=== PATIENT | female | born 1940 | race Hispanic/Latino ===

== ENCOUNTER 2018-02-19 12:35 | Outpatient (CLI) | payer MEDICARE | END 2018-02-19 12:36 | disposition home or self-care (01) | LOC: BICULT 12:35 | PROVIDERS: ATTEND Internal Medicine Gastroenterology | DX: K74.60 Unspecified cirrhosis of liver (principal); K80.20 Calculus of gallbladder without cholecystitis without obstruction; R16.1 Splenomegaly, not elsewhere classified | CPT/HCPCS: 76705 ==

== ENCOUNTER 2018-07-02 09:25 | Outpatient (CLI) | payer MEDICARE ==
--- NOTE | 2018-07-02 13:28 | RAD ---
LEFT HIP TWO VIEWS: History: Left hip pain. FINDINGS: No evidence of fracture or acute osseous abnormality. Mild degenerative change at the hip. Femoral he ad contour is preserved. IMPRESSION: No acute findings. POS: [facility]
== END 2018-07-02 09:26 | disposition home or self-care (01) ==
LOC: BICMAMMO 09:25
PROVIDERS: ATTEND Family Medicine
DX: Z12.31 Encounter for screening mammogram for malignant neoplasm of breast (principal); M25.552 Pain in left hip
CPT/HCPCS: 77063; 77067

== ENCOUNTER 2018-10-10 16:14 | Outpatient (CLI) | payer MEDICARE ==
--- NOTE | 2018-10-10 17:03 | RAD ---
CHEST 2 VIEWS: Date: 10/10/18 HISTORY: Shortness of breath. COMPARISON: Radiograph from 2015. FINDINGS: Heart size is enlarged. Mild pulmonary venous congestion. No pneumothorax. No large effusion. No osse ous abnormality. IMPRESSION: Cardiomegaly and mild pulmonary venous congestion. POS: [facility]
== END 2018-10-10 16:15 | disposition home or self-care (01) ==
LOC: BICRAD 16:14
PROVIDERS: ATTEND Family Medicine
DX: R06.02 Shortness of breath (principal); I51.7 Cardiomegaly; R09.89 Other specified symptoms and signs involving the circulatory and respiratory systems
CPT/HCPCS: 71046

== ENCOUNTER 2019-05-14 08:05 | Outpatient (CLI) | payer MEDICARE ==
--- NOTE | 2019-05-14 10:39 | ULT ---
HEPATIC ULTRASOUND WITH EWING SCALE AND COLOR FLOW AND SPECTRAL DOPPLER IMAGING: HISTORY: Cirrhosis of the liver. FINDINGS: Comparison is made to the exam of 08/14/2018. Gallstones are again seen without gallbladder wall thickening or pericholecystic fluid. The common d uct measures 2 mm in diameter. The spleen is enlarged measuring 15.5 cm in length. The liver has a coarse echotexture. A tiny 6 x 4 x 2 mm hyperechoic lesion is seen in the right lobe which is not definitely identified on the previous study. No other liver mass was seen. No intrahe patic biliary ductal dilatation was noted. No free fluid is seen. There is normal flow and spectral waveforms in the hepatic, portal, and splen ic vasculature. FINDINGS: 1. Cholelithiasis. 2. Splenomegaly. 3. A 6 x 4 x 2 mm hyperechoic lesion in the right lobe of the liver. This may represent a hemangiom a. Further evaluation with a CT scan using the hemangioma protocol is recommended. CODE T POS: [facility]
== END 2019-05-14 08:06 | disposition home or self-care (01) ==
LOC: BICULT 08:05
PROVIDERS: ATTEND Internal Medicine
DX: K74.60 Unspecified cirrhosis of liver (principal); B18.2 Chronic viral hepatitis C; K80.20 Calculus of gallbladder without cholecystitis without obstruction; R16.1 Splenomegaly, not elsewhere classified; K76.9 Liver disease, unspecified
CPT/HCPCS: 76705

== ENCOUNTER 2019-06-03 11:11 | Inpatient (IN) | payer MEDICARE ==
--- NOTE | 2019-06-03 11:44 | RAD ---
Exam: Chest 2 views HISTORY:Fever and cough Comparison: 10/10/2018 FINDINGS: Lungs: Multifocal alveolar consolidation is present, bilaterally. Cardiac silhouette:Borderline enlargement. Ectasia of thoracic aorta. Pulmonary vessels: Mild central vascular prominence. Pleural Spaces: Clear Pneumothorax: None Osseous abnormalities: None of acuity. IMPRESSION: Bilateral, multifocal alveolar consolidation which could either relate to atypical pneumo ananda, or edema. Correlate clinically. Imaging follow-up may be obtained for continued assessment.
[2019-06-03 12:13] LABS: ALT (SGPT) 15 U/L (8-55); AST (SGOT) 19 U/L (5-34); Alkaline Phosphatase 93 U/L (40-110); Anion Gap 12 mmol/L (10-20); BUN (Urea Nitrogen) 14 mg/dL (9.8-20.1); Bilirubin, Total 1.9 mg/dL (0.2-1.2); Calc. Creatinine Clearance 0 mL/min (70-130); Calcium 9.2 mg/dL (7.8-10.44); Carbon Dioxide 26 mmol/L (23-31); Chloride 102 mmol/L (98-107); Estimated GFR-MDRD 68; Globulin 3.7 g/dL (2.4-3.5); Glucose 185 mg/dL (83-110); Potassium 3.8 mmol/L (3.5-5.1); Protein, Total 7.7 g/dL (6.0-8.3); Sodium 136 mmol/L (136-145)
[2019-06-03 12:18] LABS: #Lymphocytes 0.4 thou/uL (1.20-3.40); #Monocytes 0.4 thou/uL (0.11-0.59); #Neutrophils 6.4 thou/uL (1.40-6.50); %Basophils 0.2 % (0.0-1.0); %Eosinophils 0.3 % (0.0-10.0); %Lymphocytes 5.4 % (21.0-51.0); %Monocytes 5.1 % (0.0-10.0); %Neutrophils 89.1 % (42.0-75.0); Hemoglobin 11.9 g/dL (12.0-16.0); MDiff Complete? YES; Mean Corpuscular HGB CONC 31.9 g/dL (32.0-36.0); Mean Corpuscular Hemoglobin 25.8 pg (27.0-31.0); Mean Corpuscular Volume 80.7 fL (78.0-98.0); Mean Platelet Volume 9.7 fL (7.4-10.4); Platelet Count 71 thou/uL (130-400); Platelet Morphology Comment Appears Decreased; Polychromasia SLIGHT = 2-3 cells (100X) (0-2/hpf); RBC Distribution Width 15.7 % (11.5-14.5); Red Blood Cell (RBC) Count 4.61 mill/uL (4.20-5.40); White Blood Cell (WBC) Count 7.2 thou/uL (4.8-10.8)
[2019-06-03 12:21] LABS: Bacteria/HPF 3+ HPF (None Seen); Bilirubin Negative (Negative); Blood, Urine Trace (Negative); Clarity Turbid (Clear); Glucose, Urine (Dipstick) Normal (Negative); Leukocyte 500 Leu/uL (Negative); Nitrite 2+ (Negative); Protein, Urine (Dipstick) 50 mg/dL (Neg-Trace); Urobilinogen 3 mg/dL (Less than 2)
[2019-06-03] MEDS ORDERED: cefTRIAXone\\ROCEPHIN 1 GM VIAL ONE (13:00)
[2019-06-03] MEDS ORDERED: Acetaminophen 500 MG TAB ONE (13:00)
[2019-06-03] MEDS ORDERED: Azithromycin 500 MG VIAL ONE (16:10)
[2019-06-03] MEDS ORDERED: Ondansetron PF 4 MG/2 ML Vial IVP PRN (18:05)
[2019-06-03] MEDS ORDERED: Ondansetron ODT 4 MG TAB PO PRN (18:05)
[2019-06-03] MEDS ORDERED: Acetaminophen 650 MG Suppository PR PRN (18:05)
[2019-06-03] MEDS ORDERED: Dextrose 50% Abboject 50 ML SYRINGE SLOW IVP PRN (18:06)
[2019-06-03] MEDS ORDERED: Dextrose 5% in Water 1,000 ML IV PRN (18:06)
[2019-06-03] MEDS ORDERED: HumaLOG 300 UNITS/3 ML VIAL SC PRN (18:06)
--- NOTE | 2019-06-03 18:54 | PDOC.HHP ---
Hospitalist HPI - History of Present Illness shortness of breath and cough History of Present Illness: Patient states she has been having shortness of breath since the weekend and a dry cough. She states she has been around family members who have had a cold. She complains of dysuria for the last 2 months. States she saw her primary care physician for a routine visit and was told labs as well as UA was normal. This morning she spiked a temperature at home to 101.9. At present she feels significantly better than when she first came in to the ER. She reports feeling generally fatigued. ED Course: Labs done in the ED included WCC of 7.2, Neutrophils of 89.1, Na+ 136, K+ 3.8, BUN 14, Creat 0.82, GFR 68. Total bilirubin 1.9, protein 7.7, Albumin 4, Alk phos 93, AST 19, ALT 15, Lactic acid 2.3. A chest xray was done showing bilateral multifocal alveolar consolidation felt to represent atypical pneumonia vs. edema. A UA was done as well showing a turbid appearance, leukocyte 500, Nitrite 2+, Trace blood, Bacterial 3+, WBC 11-20. Hospitalist ROS - Review of Systems Constitutional: reports: fever, malaise Eyes: denies: pain, vision change, conjunctivae inflammation, eyelid inflammation, redness, other ENT: denies: ear pain, ear discharge, nose pain, nose discharge, nose congestion , mouth pain, mouth swelling, throat pain, throat swelling, other Respiratory: reports: cough, dry, shortness of breath. denies: hemoptysis, SOB with excertion, pleuritic pain, sputum, wheezing, other Cardiovascular: denies: chest pain, palpitations, orthopnea, paroxysmal noc. dyspnea, edema, light headedness, other Gastrointestinal: denies: nausea, vomiting, abdominal pain, diarrhea, constipation, melena, hematochezia Genitourinary: reports: dysuria. denies: frequency, incontinence, hematuria, retention, other Musculoskeletal: reports: back pain (generally sore due to coughing). denies: neck pain, shoulder pain, arm pain, hand pain, leg pain, foot pain, other Skin: denies: rash, lesions, brigido, bruising, other Neurological: denies: weakness, numbness, incoordination, change in speech, confusion, seizures, other Hospitalist History - Past Medical History Cardiac: reports: Hyperlipidemia Gastrointestinal: reports: Other Hepatobiliary: reports: Cirrhosis, Hep A/B/C (hepatitis C) Psych: reports: Anxiety Endocrine: reports: Diabetes, Hypothyroidism - Past Surgical History Past Surgical History: reports: Appendectomy, Hysterectomy - Social History Smoking Status: Never smoker Alcohol: reports: None Drugs: reports: none Living Situation: With Family Activity level: independent ambulation - Exam General Appearance: NAD Eye: PERRL, anicteric sclera ENT: normocephalic atraumatic, no oropharyngeal lesions, moist mucosa Neck: supple, symmetric, no lymphadenopathy Heart: RRR, no murmur, no gallops, no rubs Respiratory: CTAB, no wheezes, no rales, no ronchi, normal chest expansion Gastrointestinal: soft, non-tender, non-distended, normal bowel sounds Extremities: no cyanosis, no clubbing, no edema Skin: normal turgor, no lesions, no rashes Neurological: cranial nerve grossly intact, no focal deficits Musculoskeletal: normal tone, normal strength, no muscle wasting Psychiatric: normal affect, normal behavior, A&O x 3 Hospitalist Results - Labs Result Diagrams: 06/03/19 11:19 06/03/19 11:19 Lab results: WBC 7.2 thou/uL (4.8-10.8) 06/03/19 11:19 Hgb 11.9 g/dL (12.0-16.0) L 06/03/19 11:19 Hct 37.2 % (36.0-47.0) 06/03/19 11:19 MCV 80.7 fL (78.0-98.0) 06/03/19 11:19 Plt Count 71 thou/uL (130-400) L 06/03/19 11:19 Neutrophils % 89.1 % (42.0-75.0) H 06/03/19 11:19 Sodium 136 mmol/L (136-145) 06/03/19 11:19 Potassium 3.8 mmol/L (3.5-5.1) 06/03/19 11:19 Chloride 102 mmol/L (98-107) 06/03/19 11:19 Carbon Dioxide 26 mmol/L (23-31) 06/03/19 11:19 BUN 14 mg/dL (9.8-20.1) 06/03/19 11:19 Creatinine 0.82 mg/dL (0.6-1.1) 06/03/19 11:19 Glucose 185 mg/dL (83-110) H 06/03/19 11:19 Lactic Acid 1.0 mmol/L (0.5-2.2) 06/03/19 15:21 Calcium 9.2 mg/dL (7.8-10.44) 06/03/19 11:19 Total Bilirubin 1.9 mg/dL (0.2-1.2) H 06/03/19 11:19 AST 19 U/L (5-34) 06/03/19 11:19 ALT 15 U/L (8-55) 06/03/19 11:19 Alkaline Phosphatase 93 U/L (40-110) 06/03/19 11:19 Serum Total Protein 7.7 g/dL (6.0-8.3) 06/03/19 11: Albumin 4.0 g/dL (3.4-4.8) 06/03/19 11:19 Urine Ketones 20 mg/dL (Negative) A 06/03/19 12:00 Urine Blood Trace (Negative) A 06/03/19 12:00 Urine Nitrite 2+ (Negative) A 06/03/19 12:00 Ur Leukocyte Esterase 500 Olivia/uL (Negative) A 06/03/19 12:00 Urine RBC 4-6 HPF (0-3) A 06/03/19 12:00 Urine WBC 11-20 HPF (0-3) A 06/03/19 12:00 Ur Squamous Epith Cells 4-6 HPF (0-3) A 06/03/19 12:00 Urine Bacteria 3+ HPF (None Seen) A 06/03/19 12:00 - Radiology Interpretation Chest x-ray Status: report reviewed by il Hospitalist H&P A/P - Problem (1) UTI (urinary tract infection) Status: Acute (2) Shortness of breath Code(s): R06.02 - SHORTNESS OF BREATH Status: Acute (3) Multifocal lung consolidation Code(s): J18.1 - LOBAR PNEUMONIA, UNSPECIFIED ORGANISM Status: Acute (4) Diabetes mellitus Code(s): E11.9 - TYPE 2 DIABETES MELLITUS WITHOUT COMPLICATIONS Status: Chronic (5) Hypothyroidism Code(s): E03.9 - HYPOTHYROIDISM, UNSPECIFIED Status: Chronic (6) Hyperlipidemia Code(s): E78.5 - HYPERLIPIDEMIA, UNSPECIFIED Status: Chronic - Plan Plan: Continue IV Abx. Urine culture pending. CXR: multifocal aveolar consolidation, possible pneumonia vs. edema. Will check BNP. Albuterol Nebs. Monitor O2 sats. Gentle hydration. Reconcile home medications once verified. Monitor glucose and initiate insulin sliding scale CODE STATUS: FULL SURROGATE DECISION MAKER: Her daughter Mahi Pickett. Case discussed with Dr. Arana who agrees with plan as above.
[2019-06-03] MEDS: Albuterol Sulfate 2.5 mg/3 ml Neb NEB SCH ×2 (21:26→23:06)
[2019-06-03] MEDS: Famotidine/PF 20 mg/2ml Vial SLOW IVP SCH (21:45)
[2019-06-03 22:23] VITALS: BMI 35.2
[2019-06-04] MEDS: Acetaminophen 325 MG TAB PO PRN ×3 (00:18→20:24)
[2019-06-04 06:40] LABS: #Lymphocytes 0.6 thou/uL (1.20-3.40); #Monocytes 0.3 thou/uL (0.11-0.59); #Neutrophils 3.5 thou/uL (1.40-6.50); %Basophils 0.6 % (0.0-1.0); %Eosinophils 0.5 % (0.0-10.0); %Lymphocytes 13.8 % (21.0-51.0); %Monocytes 6.9 % (0.0-10.0); %Neutrophils 78.3 % (42.0-75.0); Hemoglobin 9.9 g/dL (12.0-16.0); Mean Corpuscular HGB CONC 32.7 g/dL (32.0-36.0); Mean Corpuscular Hemoglobin 26.1 pg (27.0-31.0); Mean Corpuscular Volume 79.8 fL (78.0-98.0); Platelet Count 63 thou/uL (130-400); RBC Distribution Width 15.5 % (11.5-14.5); Red Blood Cell (RBC) Count 3.78 mill/uL (4.20-5.40); White Blood Cell (WBC) Count 4.5 thou/uL (4.8-10.8)
[2019-06-04 06:41] LABS: Anion Gap 11 mmol/L (10-20); BUN (Urea Nitrogen) 11 mg/dL (9.8-20.1); Calc. Creatinine Clearance 89 mL/min (70-130); Calcium 8.4 mg/dL (7.8-10.44); Carbon Dioxide 25 mmol/L (23-31); Chloride 108 mmol/L (98-107); Estimated GFR-MDRD 84; Glucose 126 mg/dL (83-110); Potassium 3.6 mmol/L (3.5-5.1); Sodium 140 mmol/L (136-145)
[2019-06-04] MEDS: Albuterol Sulfate 2.5 mg/3 ml Neb NEB SCH ×4 (07:04→23:08)
[2019-06-04] MEDS ORDERED: Prevnar 13-Val Conj/PF 0.5 ML SYRINGE IM ONE (09:00)
[2019-06-04] MEDS ORDERED: FLU VACC TS2019-20(65YR UP)/PF 180 MCG/0.5 ML SYRINGE IM ONE (09:00)
[2019-06-04] MEDS: Famotidine/PF 20 mg/2ml Vial SLOW IVP SCH ×2 (11:47→20:25)
[2019-06-04] MEDS: Benzonatate 100 MG CAP PO PRN (12:04)
[2019-06-04] MEDS: cefTRIAXone\\ROCEPHIN 1 GM in Sodium Chloride 0.9% 100 ML IVPB SCH (12:05)
[2019-06-04] MEDS: HumaLOG 300 UNITS/3 ML VIAL SC PRN (12:19)
[2019-06-04] MEDS: Azithromycin 500 MG in Sodium Chloride 0.9% 250 ML 250 ML IVPB SCH (17:54)
[2019-06-04] MEDS ORDERED: Senokot 8.6 MG TAB PO PRN (18:51)
[2019-06-04] MEDS ORDERED: Polyethylene Glycol 3350 17 GM Packet PO PRN (18:52)
[2019-06-04] MEDS ORDERED: Bisacodyl 10 MG SUPP PR PRN (18:52)
--- NOTE | 2019-06-04 18:54 | PDOC.HOSPP ---
- Subjective Encounter Date: 06/04/19 Encounter Time: 18:52 Subjective: Patient feels much better compared to yesterday. She still feels congested, unable to produce much phlegm up. Feels some pressure. Also has some abdominal pain. Hasn't had a bowel movement since last Sunday. She has history of multiple UTI in past - Objective Vital Signs & Weight: Vital Signs (12 hours) Temp Pulse Resp BP Pulse Ox 06/04/19 16:00 98.5 F 91 20 100/63 95 06/04/19 14:23 85 16 96 06/04/19 11:00 97.6 F 85 20 107/59 L 96 06/04/19 08:00 96 06/04/19 07:47 98.0 F 88 20 112/67 96 06/04/19 07:04 80 20 97 Weight Weight 180 lb I&O: 06/03/19 06/04/19 06/05/19 06:59 06:59 06:59 Intake Total 400 Balance 400 Result Diagrams: 06/04/19 05:27 06/04/19 05:27 Additional Labs: Accuchecks 06/04/19 06/04/19 06/04/19 16:19 11:12 04:34 POC Glucose 133 H 207 H 154 H 06/03/19 22:33 POC Glucose 144 H Hospitalist ROS - Review of Systems Constitutional: denies: fever, chills - Medication Medications: Active Medications Generic Name Dose Route Start Last Admin Trade Name Freq PRN Reason Stop Dose Admin Acetaminophen 650 mg 06/03/19 18:05 06/04/19 12:04 Tylenol PO 650 mg Q4H PRN Administration Headache/Fever/Mild Pain (1-3) Albuterol Sulfate 2.5 mg 06/03/19 19:00 06/04/19 14:23 Ventolin NEB 2.5 mg [id number] CONCHITA Administration Benzonatate 100 mg 06/03/19 18:07 06/04/19 12:04 Tessalon PO 100 mg TIDPRN PRN Administration Cough Famotidine 20 mg 06/03/19 21:00 06/04/19 11:47 Pepcid SLOW IVP 20 mg Q12HR CONCHITA Administration Ceftriaxone Sodium 1 gm/ 100 mls @ 200 mls/hr 06/04/19 13:00 06/04/19 12:05 Sodium Chloride IVPB 100 mls 1300 CONCHITA Administration Azithromycin 500 mg/ Sodium 250 mls @ 250 mls/hr 06/04/19 16:00 06/04/19 17: 54 Chloride IVPB 250 mls 1600 CONCHITA Administration Insulin Human Lispro 0 units 06/03/19 18:06 06/04/19 12:19 Humalog SC 3 unit .MILD SLIDING SCALE PRN Administration Mild Correctional Scale - Exam General Appearance: NAD, awake alert Eye: PERRL, anicteric sclera ENT: normocephalic atraumatic, no oropharyngeal lesions Neck: supple, symmetric, no JVD, no thyromegaly Heart: RRR, no murmur, no gallops, no rubs Respiratory - other findings: diminished breath sounds, scattered wheezing Gastrointestinal: soft, non-tender, non-distended, normal bowel sounds Extremities: no cyanosis, no clubbing, no edema Skin: normal turgor, no lesions, no rashes Neurological: cranial nerve grossly intact, normal sensation to touch, no focal deficits, no new deficit Musculoskeletal: normal tone, normal strength, no muscle wasting Psychiatric: normal affect, normal behavior, A&O x 3 Hosp A/P - Plan This is a 79 year old female with history of diabetes, hyperlipidemia who presented with fever at urgent care, cough, shortness of breath, found to have mildly hypoxic. Found to have pneumonia and UTI Sepsis from pneumonia vs UTI Possible COPD exacerbation? - temp of 100.1, HR 93, chest X ray showing multifocal alveolar consolidation present. Blood cultures negative, flu negative, send sputum culture - continue IV ceftriaxone and azithromycin - UA appeared turbid, send urine culture -no history of COPD however lungs sound very tight and wheezing present, will add IV solumedrol 40 mg, duonebs, albuterol prn Anemia - Hb drop from 11 to 9, check iron panel Hyperlipidemia- atorvastatin Hypothyroidism - continue levothyroxine Type II diabetes- continue sliding scale Thrombocytopenia - platelet drop from 71 to 63, will monitor DVT prophylaxis: SCD due to thrombocytopenia Code status: full code
[2019-06-04] MEDS ORDERED: Albuterol Sulfate 1.25 MG/3 ML NEB NEB PRN (18:56)
[2019-06-04] MEDS ORDERED: methylPREDNISolone Sod Succ 40 MG VIAL IVP SCH (19:00)
[2019-06-04] MEDS ORDERED: guaiFENesin ER 600 MG TAB PO SCH (19:00)
[2019-06-04] MEDS ORDERED: Bacteriostatic Water 30 ML VIAL FS PRN (19:02)
[2019-06-04 20:10] LABS: Iron 24 ug/dL (50-170); Iron Binding Capacity, Total 350 mcg/dL (265-497)
[2019-06-04] MEDS: Docusate 100 MG CAP PO SCH (20:24)
[2019-06-05] MEDS: HumaLOG 300 UNITS/3 ML VIAL SC PRN ×2 (05:41→16:52)
[2019-06-05 05:52] LABS: Hemoglobin 11.2 g/dL (12.0-16.0); Mean Corpuscular HGB CONC 32.2 g/dL (32.0-36.0); Mean Corpuscular Hemoglobin 25.9 pg (27.0-31.0); Mean Corpuscular Volume 80.7 fL (78.0-98.0); Platelet Count 71 thou/uL (130-400); RBC Distribution Width 15.5 % (11.5-14.5); White Blood Cell (WBC) Count 2.1 thou/uL (4.8-10.8)
[2019-06-05 06:01] LABS: Anion Gap 16 mmol/L (10-20); BUN (Urea Nitrogen) 15 mg/dL (9.8-20.1); Calc. Creatinine Clearance 74 mL/min (70-130); Calcium 9.4 mg/dL (7.8-10.44); Carbon Dioxide 21 mmol/L (23-31); Chloride 108 mmol/L (98-107); Estimated GFR-MDRD 68; Glucose 283 mg/dL (83-110); Potassium 4.1 mmol/L (3.5-5.1); Sodium 141 mmol/L (136-145)
[2019-06-05] MEDS: Albuterol Sulfate 2.5 mg/3 ml Neb NEB SCH ×3 (07:19→18:31)
[2019-06-05] MEDS ORDERED: methylPREDNISolone Sod Succ 40 MG VIAL IVP SCH (09:00)
[2019-06-05] MEDS: Docusate 100 MG CAP PO SCH ×2 (09:05→19:43)
[2019-06-05] MEDS: guaiFENesin ER 600 MG TAB PO SCH ×2 (09:05→19:42)
[2019-06-05] MEDS: Benzonatate 100 MG CAP PO PRN ×2 (09:05→18:09)
[2019-06-05] MEDS: Famotidine/PF 20 mg/2ml Vial SLOW IVP SCH (09:08)
[2019-06-05] MEDS: Acetaminophen 325 MG TAB PO PRN (09:15)
[2019-06-05] MEDS: cefTRIAXone\\ROCEPHIN 1 GM in Sodium Chloride 0.9% 100 ML IVPB SCH (12:49)
[2019-06-05] MEDS: Azithromycin 500 MG in Sodium Chloride 0.9% 250 ML 250 ML IVPB SCH (16:52)
[2019-06-05] MEDS ORDERED: Azithromycin 250 MG TAB PO SCH ×2 (18:00)
[2019-06-05 19:25] VITALS: BP 130/76; TEMP 98.5
[2019-06-06] MEDS ORDERED: Famotidine 20 MG TAB PO SCH (21:00)
== END 2019-06-05 20:03 | disposition home or self-care (01) | DRG 871 ==
LOC: ERS 11:11 → T4-B 15:56 → OBSVTOIN 06-05
PROVIDERS: ADMIT Internal Medicine; ATTEND Internal Medicine
DX: A41.9 Sepsis, unspecified organism (principal); J18.9 Pneumonia, unspecified organism; N39.0 Urinary tract infection, site not specified; E03.9 Hypothyroidism, unspecified; E78.5 Hyperlipidemia, unspecified; E11.9 Type 2 diabetes mellitus without complications; D64.9 Anemia, unspecified; Z23 Encounter for immunization; Z79.899 Other long term (current) drug therapy; Z79.890 Hormone replacement therapy; Z79.4 Long term (current) use of insulin
CPT/HCPCS: 36415; 36416; 71046; 80048; 80053; 81003; 81015; 82728; 83540; 83550; 83605; 83880; 85025; 85027; 87040; 87086; 87804; 94640; 96361; 96365; 96367; J0456; J0696; J2920; J3490; J7050; J7611; S0028

== ENCOUNTER 2019-06-17 08:42 | Outpatient (CLI) | payer MEDICARE ==
--- NOTE | 2019-06-17 09:11 | BD ---
DEXA BONE DENSITY SCAN: DATE: 06/17/2019. COMPARISON: None available. HISTORY: Postmenopausal female undergoing screening for osteoporosis. Lumbar Spine: BMD (g/cm2) L1 0.715 T-Score: -2.5 L2 0.699 T-Score: -3.0 L3 0.690 T-Score: -3.6 L4 0.737 T-Score: -2.9 L1-L4 0.711 T-Score: -3.1 Femoral Neck: 0.531 T-Score: -2.9 Total Femur: 0.844 T-Score: -0.8 The FRAX-WHO fracture risk assessment tool was not reported as T-scores are at or below -2.5. IMPRESSION: Lumbar spine and femoral neck osteoporosis, correlating with a high associated risk for fracture. Transcribed Date/Time: 06/17/2019 9:36 AM
== END 2019-06-17 08:43 | disposition home or self-care (01) ==
LOC: BICMAMMO 08:42
PROVIDERS: ATTEND Family Medicine
DX: Z13.820 Encounter for screening for osteoporosis (principal); M81.0 Age-related osteoporosis without current pathological fracture
CPT/HCPCS: 77080

== ENCOUNTER 2019-07-08 10:40 | Outpatient (CLI) | payer MEDICARE ==
--- NOTE | 2019-07-08 11:00 | RAD ---
EXAM: Chest 2 views: HISTORY: Pneumonia COMPARISON: 06/03/2019 FINDINGS: There is a normal-sized cardiomediastinal silhouette. Increased interstitial markings are present. There is no evidence of consolidation, mass, or pleural effusion. The bones are unremarkable. IMPRESSION: No evidence of acute cardiopulmonary disease
== END 2019-07-08 10:41 | disposition home or self-care (01) ==
LOC: BICRAD 10:40
PROVIDERS: ATTEND Family Medicine
DX: J18.9 Pneumonia, unspecified organism (principal)
CPT/HCPCS: 71046

== ENCOUNTER 2019-12-22 11:00 | Outpatient (CLI) | payer MEDICARE ==
[~2019-12-22 11:00] MED LIST: Iopamidol-370 76% 500 ML 1 ML ONE
[2019-12-22 11:26] LABS: Estimated GFR-MDRD - POC Greater than 90
--- NOTE | 2019-12-22 13:10 | CT ---
CT ABDOMEN WITHOUT AND WITH CONTRAST: Comparison: Right upper quadrant ultrasound, 05-14-19 History: Lesion seen on liver on prior ultrasound which may represent a hemangioma. Technique: Multiple contiguous axial images were obtained in a CT of the abdomen only without and wit h IV contrast. PO contrast was administered. Sagittal and coronal reformats were performed. FINDINGS: The liver is slightly nodular in appearance which may represent mild cirrhosis. Subcentimeter hypoden sities in the right lobe of the liver are seen best on the portal venous phase images. These do not d emonstrate obvious enhancement or filling in on the delayed images. No obvious enhancing liver masses are seen to correspond to the hyperechoic region on ultrasound. There is a calcification in the ante rior aspect of the right lobe of the liver. Multiple gallstones are seen in the gallbladder. No biliary dilation is seen. The kidneys, adrenal gl ands, and pancreas are unremarkable. The spleen is enlarged measuring 13.3 cm in length. No abdominal adenopathy is seen. Atherosclerotic calcifications are seen in the aorta. Degenerative changes are seen in the spine. The visualized inferior thorax and abdominal wall soft tissues are unremarkable. IMPRESSION: 1. Likely mild cirrhosis with splenomegaly. 2. Small hypoechoic lesions in the liver, too small to definitely characterize. These may represent s mall cysts. No definite filling is seen on the delayed images to suggest that these are hemangiomas, although these still could be small hemangiomas. No definite enhancing mass is seen as a cause for th e hyperechoic 6 mm lesion seen on prior ultrasound. 3. Cholelithiasis. POS: [facility]
== END 2019-12-22 11:01 | disposition home or self-care (01) ==
LOC: BICCT 11:00
PROVIDERS: ATTEND Internal Medicine
DX: K74.60 Unspecified cirrhosis of liver (principal); B18.2 Chronic viral hepatitis C; K76.9 Liver disease, unspecified; K80.20 Calculus of gallbladder without cholecystitis without obstruction; R16.1 Splenomegaly, not elsewhere classified
CPT/HCPCS: 74170; 82565; Q9967

== ENCOUNTER 2020-05-31 10:28 | Outpatient (CLI) | payer MEDICARE ==
--- NOTE | 2020-05-31 10:54 | RAD ---
Chest 2 views HISTORY: Chest pain. Dyspnea. COMPARISON: 07/08/2019. FINDINGS: Cardiac silhouette and pulmonary vasculature are unremarkable. Mediastinum is midline. No c onfluent airspace consolidation, pneumothorax, or pleural fluid are evident. Diffuse, mild chronic peripheral interstitial thickening is similar in appearance to the previous mario dy. IMPRESSION : Chronic-type findings are stable. No active cardiopulmonary abnormalities are demonstrated.
== END 2020-05-31 10:29 | disposition home or self-care (01) ==
LOC: BICRAD 10:28
PROVIDERS: ATTEND Family Medicine
DX: R07.9 Chest pain, unspecified (principal)
CPT/HCPCS: 71046

== ENCOUNTER 2020-09-01 13:10 | Outpatient (CLI) | payer MEDICARE ==
--- NOTE | 2020-09-01 13:24 | RAD ---
XR Chest Pa Lat STANDARD HISTORY: Dyspnea COMPARISON: 05/31/2020 FINDINGS: The heart size is normal. The aorta is tortuous. The lungs are well expanded with stable ch ronic parenchymal changes. There are no focal areas of consolidation, pneumothorax or pleural effusions. There are degenerative changes in the spine. IMPRESSION: No radiographic evidence of acute cardiopulmonary process.
== END 2020-09-01 13:11 | disposition home or self-care (01) ==
LOC: BICRAD 13:10
PROVIDERS: ATTEND Internal Medicine Pulmonary Disease
DX: R06.00 Dyspnea, unspecified (principal)
CPT/HCPCS: 71046

== ENCOUNTER 2020-11-26 10:39 | Outpatient (CLI) | payer MEDICARE | END 2020-11-26 10:40 | disposition home or self-care (01) | LOC: BICULT 10:39 | PROVIDERS: ATTEND Internal Medicine | DX: B19.20 Unspecified viral hepatitis C without hepatic coma (principal); K74.60 Unspecified cirrhosis of liver; D64.9 Anemia, unspecified; R42 Dizziness and giddiness; K80.20 Calculus of gallbladder without cholecystitis without obstruction; R16.1 Splenomegaly, not elsewhere classified | CPT/HCPCS: 76705 ==

== ENCOUNTER 2021-06-17 09:21 | Outpatient (CLI) | payer MEDICARE | END 2021-06-17 09:22 | disposition home or self-care (01) | LOC: BICULT 09:21 | PROVIDERS: ATTEND Internal Medicine | DX: K74.60 Unspecified cirrhosis of liver (principal); R16.1 Splenomegaly, not elsewhere classified | CPT/HCPCS: 76705 ==

== ENCOUNTER 2021-12-09 09:27 | Outpatient (CLI) | payer MEDICARE | END 2021-12-09 09:28 | disposition home or self-care (01) | LOC: BICULT 09:27 | PROVIDERS: ATTEND Physician Assistant Medical | DX: K74.60 Unspecified cirrhosis of liver (principal); K59.09 Other constipation; K80.20 Calculus of gallbladder without cholecystitis without obstruction; R16.1 Splenomegaly, not elsewhere classified; R93.2 Abnormal findings on diagnostic imaging of liver and biliary tract | CPT/HCPCS: 76700 ==

== ENCOUNTER 2022-05-18 09:51 | Outpatient (CLI) | payer MEDICARE ==
[2022-05-18] MEDS ORDERED: Iopamidol-370 76% 500 ML 1 ML ONE (10:11)
== END 2022-05-18 09:52 | disposition home or self-care (01) ==
LOC: BICCT 09:51
PROVIDERS: ATTEND Physician Assistant Medical
DX: K74.60 Unspecified cirrhosis of liver (principal); K80.20 Calculus of gallbladder without cholecystitis without obstruction; R16.2 Hepatomegaly with splenomegaly, not elsewhere classified
CPT/HCPCS: 74170; 82565; Q9967

== ENCOUNTER 2022-06-02 09:13 | Outpatient (CLI) | payer MEDICARE ==
[2022-06-02] MEDS ORDERED: Magnevist 469MG/ML 20 ML VIAL ONE (10:27)
== END 2022-06-02 09:14 | disposition home or self-care (01) ==
LOC: MRI 09:13
PROVIDERS: ATTEND Physician Assistant Medical
DX: K76.9 Liver disease, unspecified (principal); R16.0 Hepatomegaly, not elsewhere classified
CPT/HCPCS: 74183

== ENCOUNTER 2023-07-19 10:21 | Outpatient (CLI) | payer MEDICARE | END 2023-07-19 10:22 | disposition home or self-care (01) | LOC: BICCT 10:21 | PROVIDERS: ATTEND Internal Medicine | DX: K74.60 Unspecified cirrhosis of liver (principal); K76.9 Liver disease, unspecified; K59.00 Constipation, unspecified; R16.1 Splenomegaly, not elsewhere classified; K80.20 Calculus of gallbladder without cholecystitis without obstruction | CPT/HCPCS: 74170; 82565 ==

== ENCOUNTER 2024-06-27 08:25 | Outpatient (CLI) | payer MEDICARE ==
[2024-06-27] MEDS ORDERED: Iopamidol 370 76% 100 ML VIAL ONE (12:12)
== END 2024-06-27 08:26 | disposition home or self-care (01) ==
LOC: CT 08:25
PROVIDERS: ATTEND Physician Assistant Medical
DX: K74.60 Unspecified cirrhosis of liver (principal); K76.9 Liver disease, unspecified; K59.09 Other constipation; K76.6 Portal hypertension
CPT/HCPCS: 36415; 74170; 82565